=== PATIENT | male | born 1965 | race Caucasian/White ===

== ENCOUNTER → 2016-10-24 | Outpatient (CLI) | payer OTHER ==
[2016-10-24 10:11] LABS: Basophils % (A) 1 %; CH 29.6; CHCM 33.2; Eosinophils # (A) 0.1 k/uL (0-0.7); Eosinophils % (A) 3 %; HCT 47.6 % (39.0-53.0); HDW 2.57; HGB 16.1 gm/dL (13.0-17.5); Luc # (Auto) 0.09; Luc % (Auto) 2; Lymphocytes # (A) 1.2 k/uL (1.0-4.8); Lymphocytes % (A) 26 %; MCH 30.2 pg (25.0-35.0); MCHC 33.7 g/dL (31.0-37.0); MCV 89.7 fL (80.0-100.0); Mean Platelet Volume 8.3; Monocytes # (A) 0.2 k/uL (0-1.0); Monocytes % (A) 5 %; Neutrophils # (A) 2.8 k/uL (1.3-7.7); Neutrophils % (A) 63 %; RBC 5.31 m/uL (4.30-5.90); RDW 13.4 % (11.5-15.5); WBC 4.5 k/uL (3.8-10.6); WBC (Perox) 4.33
[2016-10-24 10:45] LABS: ALT 35 U/L (21-72); AST 33 U/L (17-59); Alkaline Phosphatase 71 U/L (38-126); Anion Gap 11 mmol/L; Blood Urea Nitrogen 20 mg/dL (9-20); C Reactive Protein <5.0 mg/L (<10.0); Calcium 9.6 mg/dL (8.4-10.2); Carbon Dioxide 30 mmol/L (22-30); Chloride 103 mmol/L (98-107); Cholesterol 149 mg/dL (<200); Glucose 114 mg/dL (74-99); HDL Cholesterol 82 mg/dL (40-60); Non-African American GFR(MDRD) >60 (>60 ml/min/1.73 sqM); Potassium 4.7 mmol/L (3.5-5.1); Sodium 144 mmol/L (137-145); Total Bilirubin 0.6 mg/dL (0.2-1.3); Total Protein 7.4 g/dL (6.3-8.2); Triglycerides 79 mg/dL (<150); Uric Acid 4.9 mg/dL (3.5-8.5)
[2016-10-24 10:48] LABS: Rheumatoid Factor, Qnt 18 IU/mL (<12)
[2016-10-24 11:18] LABS: Erythrocyte Sedimentation Rate 2 mm/hr (0-15)
[2016-10-26 09:24] LABS: HLA B27 POSITIVE; HLA B27 Comment SEEBELOW
== END | disposition home or self-care (01) ==
LOC: LABMAIN 08:29
PROVIDERS: ATTEND Family Medicine
DX: Z00.01 Encounter for general adult medical examination with abnormal findings (principal); E10.9 Type 1 diabetes mellitus without complications; Z12.5 Encounter for screening for malignant neoplasm of prostate
CPT/HCPCS: 86812; 36415; 80061; 80053; 85652; 84443; 84550; 85025; 86140; 86431; 86038; G0103

== ENCOUNTER → 2018-07-30 | Outpatient (CLI) | payer OTHER ==
[2018-07-30 17:32] LABS: Vitamin D 25 Hydroxy 38.2 ng/mL (30.0-100.0)
[2018-07-30 17:42] LABS: Albumin 4.6 g/dL (3.80-4.90); Albumin/Globulin Ratio 1.92 (1.60-3.17); Anion Gap 6.5 mmol/L (4.00-12.00); Calcium 9.6 mg/dL (8.7-10.3); Carbon Dioxide 32.5 mmol/L (21.6-31.8); Globulin 2.4 g/dL (1.6-3.3); LDL Cholesterol,Calculated 53.2 mg/dL (0.0-131.0); Magnesium 1.8 mg/dL (1.5-2.4); Potassium 4.4 mmol/L (3.5-5.5); Total Bilirubin 0.7 mg/dL (0.3-1.2); VLDL Calculation 14.8 mg/dL (5.00-40.00)
== END ==
LOC: LABWHC1 09:32
PROVIDERS: ATTEND Internal Medicine Endocrinology, Diabetes & Metabolism
DX: E55.9 Vitamin D deficiency, unspecified (principal); E10.65 Type 1 diabetes mellitus with hyperglycemia
CPT/HCPCS: 36415; 80053; 80061; 82043; 82306; 82570; 82607; 83735; 84439; 84443

== ENCOUNTER → 2020-02-13 | Outpatient (CLI) | payer MEDICAID ==
[2020-02-13 10:56] LABS: Basophils % (A) 1 %; Eosinophils # (A) 0.2 k/uL (0-0.7); Eosinophils % (A) 4 %; HGB 15.5 gm/dL (13.0-17.5); Lymphocytes # (A) 1.2 k/uL (1.0-4.8); Lymphocytes % (A) 26 %; MCH 28.5 pg (25.0-35.0); MCHC 32.3 g/dL (31.0-37.0); MCV 88.3 fL (80.0-100.0); Monocytes # (A) 0.3 k/uL (0-1.0); Monocytes % (A) 6 %; Neutrophils # (A) 2.9 k/uL (1.3-7.7); Neutrophils % (A) 62 %; Platelet Count 215 k/uL (150-450); RBC 5.44 m/uL (4.30-5.90); RDW 13.4 % (11.5-15.5); WBC 4.7 k/uL (3.8-10.6)
[2020-02-13 19:11] LABS: African American GFR (CKD) 97.1 (60.0-200.0); Albumin 4.5 g/dL (3.80-4.90); Albumin/Globulin Ratio 2.05 (1.60-3.17); Anion Gap 5.9 mmol/L (4.00-12.00); Calcium 9.2 mg/dL (8.7-10.3); Carbon Dioxide 30.1 mmol/L (21.6-31.8); Chol/HDL Ratio 1.62; Globulin 2.2 g/dL (1.6-3.3); LDL Cholesterol,Calculated 48.6 mg/dL (0.0-131.0); Non-African American GFR(CKD) 83.8 (60.0-200.0); PSA Annual Screen 1.1 ng/mL (0.0-4.0); Potassium 4.5 mmol/L (3.5-5.5); Total Bilirubin 0.6 mg/dL (0.3-1.2); Total Protein 6.7 g/dL (6.2-8.2); VLDL Calculation 14.4 mg/dL (5.00-40.00)
[2020-02-13 19:34] LABS: Urine Creatinine 175.9 mg/dL
[2020-02-13 20:10] LABS: Hemoglobin A1C 7.4 % (4.0-6.0)
== END | disposition home or self-care (01) ==
LOC: LABWHC1 09:36
PROVIDERS: ATTEND Internal Medicine
DX: Z00.01 Encounter for general adult medical examination with abnormal findings (principal); E10.65 Type 1 diabetes mellitus with hyperglycemia
CPT/HCPCS: 80061; 80053; 85025; 82043; 82570; 83036; 36415; G0103

== ENCOUNTER → 2020-06-18 | Outpatient (CLI) | payer MEDICAID ==
[2020-06-19 02:38] LABS: Cyclic Citrull Pep IgG Unit 0.6 U/mL; Cyclic Citrullinated Pep IgG NEGATIVE (NEGATIVE)
== END | disposition home or self-care (01) ==
LOC: LABWHC1 15:26
PROVIDERS: ATTEND Family Medicine
DX: M79.18 Myalgia, other site (principal); M54.5 Low back pain; R76.0 Raised antibody titer; M25.50 Pain in unspecified joint
CPT/HCPCS: 36415; 82306; 86038; 86200; 86431

== ENCOUNTER → 2020-08-20 | Outpatient (CLI) | payer MEDICAID ==
[2020-08-20 16:40] LABS: Appearance,Urine Clear (Clear); Bilirubin,Urine Negative (Negative); Blood,Urine Negative (Negative); Color,Urine Light Yellow; Glucose,Urine (UA) 4+ (Negative); Ketones,Urine Negative (Negative); Leukocyte Esterase,Urine Negative (Negative); Nitrite,Urine Negative (Negative); PH, Urine 6.5 (5.0-8.0); Protein,Urine Negative (Negative); Specific Gravity,Urine 1.014 (1.001-1.035); Urobilinogen,Urine <2.0 mg/dL (<2.0)
[2020-08-21 01:15] LABS: Basophils # (A) 0.04 X 10*3/uL (0.00-0.10); Eosinophils # (A) 0.11 X 10*3/uL (0.04-0.35); Eosinophils % (A) 2.8 %; HCT 42.3 % (39.6-50.0); HGB 13.9 g/dL (13.0-17.0); Lymphocytes # (A) 1.07 X 10*3/uL (0.90-5.00); Lymphocytes % (A) 27.4 %; MCH 29.4 pg (27.0-32.0); MCHC 32.9 g/dL (32.0-37.0); MCV 89.6 fL (80.0-97.0); Mean Platelet Volume 11.1 fL (9.5-12.2); Monocytes # (A) 0.35 X 10*3/uL (0.20-1.00); Neutrophils # (A) 2.33 X 10*3/uL (1.80-7.70); Neutrophils % (A) 59.5 %; Platelet Count 221 X 10*3/uL (140-440); RBC 4.72 X 10*6/uL (4.40-5.60); RDW 12.5 % (11.5-14.5); WBC 3.91 X 10*3/uL (4.50-10.00)
[2020-08-21 01:58] LABS: Erythrocyte Sedimentation Rate 3 mm/Hr (0-20)
[2020-08-21 03:22] LABS: Anti-Smith Ab Interp NEGATIVE (NEGATIVE); Cardiolipin Ab IgG Interp NEGATIVE (NEGATIVE); Cardiolipin Ab IgM Interp NEGATIVE (NEGATIVE); Cardiolipin IgA Antibody <0.5 U/mL; Cardiolipin IgM Antibody 0.8 U/mL; Cyclic Citrull Pep IgG Unit 0.5 U/mL; Cyclic Citrullinated Pep IgG NEGATIVE (NEGATIVE); DNA Double-Stranded NEGATIVE (NEGATIVE); Scleroderma SC-70 Ab <0.2 AI
[2020-08-21 04:23] LABS: Protein, Total 6.5 g/dL (6.2-8.2)
[2020-08-21 04:58] LABS: ALT 22 U/L (10-49); AST 28 U/L (14-35); African American GFR (CKD) 85.9 (60.0-200.0); Alkaline Phosphatase 68 U/L (41-126); BUN/Creat Ratio 20.91 Ratio (12.00-20.00); C Reactive Protein <0.4 mg/dL (0.0-0.8); Calcium 8.9 mg/dL (8.7-10.3); Carbon Dioxide 26.6 mmol/L (21.6-31.8); Chloride 102 mmol/L (96-109); Creatine Kinase 212 U/L (35-257); Glucose 271 mg/dL (70-110); Non-African American GFR(CKD) 74.1 (60.0-200.0); Potassium 4.4 mmol/L (3.5-5.5); Rheumatoid Factor, Qnt 24 IU/mL (0-15); Sodium 138 mmol/L (135-145); Total Bilirubin 0.5 mg/dL (0.3-1.2); Total Protein 6.6 g/dL (6.2-8.2); Uric Acid 5.6 mg/dL (3.7-8.7)
[2020-08-21 05:37] LABS: Hepatitis B Surface Antigen Non-Reactive (Non-Reactive); Hepatitis C IgG Antibody Non-Reactive (Non-Reactive)
[2020-08-21 09:44] LABS: Angiotensin-1 Converting Enz. 74 U/L (8-52)
[2020-08-21 09:46] LABS: Aldolase 5.6 U/L (1.2-7.6)
[2020-08-21 11:14] LABS: APTT 37 Sec(s) (<43); Dilute Russell Viper Venom 32 Sec(s) (<44)
[2020-08-21 12:06] LABS: Complement C3 78.1 mg/dL (80.0-207.0)
[2020-08-21 13:03] LABS: HLA B27 POSITIVE
[2020-08-21 15:22] LABS: C-ANCA <1:20 Titer (<1:20)
[2020-08-21 17:57] LABS: Vitamin D, 1, 25-Dihydroxy 68 pg/mL (20 - 79)
[2020-08-22 14:03] LABS: Albumin 4.34 g/dL (3.80-4.90)
[2020-08-23 14:11] LABS: Histone Antibody 0.4 UNITS (<1.0)
== END | disposition home or self-care (01) ==
LOC: LABWHC1 15:32
PROVIDERS: ATTEND Internal Medicine Rheumatology
DX: R76.0 Raised antibody titer (principal)
CPT/HCPCS: 36415; 80053; 81003; 82085; 82164; 82306; 82550; 82652; 83516; 83520; 83883; 84165; 84439; 84443; 84550; 85025; 85613; 85652; 85730; 86038; 86140; 86147; 86160; 86162; 86200; 86225; 86235; 86255; 86334; 86431; 86803; 86812; 87340

== ENCOUNTER → 2020-08-30 | Outpatient (CLI) | payer MEDICAID ==
--- NOTE | 2020-08-30 16:32 | XR ---
Cervical spine HISTORY: M 54.5, M 79.642, M 79.641, M 54.2 5 views of the cervical spine Loss of disc height is present at C6-7 greater than C3-4, C4-5. Some foraminal encroachment is presen t on the right at C3-4. Cervical vertebral bodies show preserved height, alignment, and bone minerali zation. Prevertebral soft tissues are normal. Lung apices are within normal limits. IMPRESSION: Suspect some underlying degenerative disc disease. Consider cervical MRI.
--- NOTE | 2020-08-30 16:33 | XR ---
AP pelvis HISTORY:M 54.5, M 79.642, M 79.641, M 54.2 Single frontal view of the pelvis Degenerative disc changes noted in the lumbar spine. Bone mineralization, joint spaces and alignment are maintained. Sacroiliac joints are intact without erosion or ankylosis, no hypertrophic change. IMPRESSION: Degenerative disc disease lumbar spine
--- NOTE | 2020-08-30 16:36 | XR ---
Lumbosacral spine HISTORY: 54.5, M 79.642, M 79.641, M 54.2 5 views of lumbosacral spine Correlated to prior exam 08/11/2013 There is no evident spondylolysis or spondylolisthesis. Loss of disc height is present at interverteb ral levels L4-5, L3-4 with associated vacuum phenomenon, loss of disc height also present L5-S1. Scle rosis of the posterior elements is consistent with facet arthropathy. Lumbar vertebral bodies show pr eserved height and bone mineralization. impression: Degenerative disc disease and facet arthropathy has progressed since prior exam
--- NOTE | 2020-08-30 16:38 | XR ---
Bilateral hands and bilateral wrists 4 views of each wrist, 3 views of each hand submitted Bone mineralization, joint spaces and alignment are maintained. No evident erosions. impression: No significant arthropathy evident
== END | disposition home or self-care (01) ==
LOC: RADXRMAIN 14:36
PROVIDERS: ATTEND Internal Medicine Rheumatology
DX: M51.36 Other intervertebral disc degeneration, lumbar region (principal); M47.816 Spondylosis without myelopathy or radiculopathy, lumbar region; M79.642 Pain in left hand; M79.641 Pain in right hand; M54.2 Cervicalgia
CPT/HCPCS: 72050; 72110; 72170

== ENCOUNTER → 2022-03-28 | Outpatient (CLI) | payer MEDICAID ==
[2022-03-28 10:11] LABS: Basophils % (A) 1 %; Eosinophils # (A) 0.2 k/uL (0-0.7); Eosinophils % (A) 5 %; HCT 45.3 % (39.0-53.0); HGB 15.4 gm/dL (13.0-17.5); Lymphocytes % (A) 24 %; MCH 30.3 pg (25.0-35.0); MCV 89.1 fL (80.0-100.0); Mean Platelet Volume 8.4; Monocytes # (A) 0.3 k/uL (0-1.0); Monocytes % (A) 6 %; Neutrophils # (A) 2.6 k/uL (1.3-7.7); Neutrophils % (A) 61 %; Platelet Count 195 k/uL (150-450); RBC 5.09 m/uL (4.30-5.90); RDW 12.9 % (11.5-15.5); WBC 4.2 k/uL (3.8-10.6)
[2022-03-28 10:36] LABS: ALT 26 U/L (4-49); AST 39 U/L (17-59); African American GFR (CKD) >90 (>60 ml/min/1.73 sqM); Albumin 4.5 g/dL (3.5-5.0); Albumin/Globulin Ratio 1.7; Alkaline Phosphatase 72 U/L (38-126); Anion Gap 9 mmol/L; Blood Urea Nitrogen 24 mg/dL (9-20); Carbon Dioxide 29 mmol/L (22-30); Chloride 99 mmol/L (98-107); Globulin 2.6 g/dL; Glucose 187 mg/dL (74-99); Non-African American GFR(CKD) 90 (>60 ml/min/1.73 sqM); Potassium 4.9 mmol/L (3.5-5.1); Sodium 137 mmol/L (137-145); Total Bilirubin 0.5 mg/dL (0.2-1.3); Total Protein 7.1 g/dL (6.3-8.2)
[2022-03-28 23:20] LABS: Chol/HDL Ratio 1.73 Ratio; LDL Cholesterol,Calculated 52.7 mg/dL (0.0-131.0); VLDL Calculation 12.86 mg/dL (5.00-40.00)
[2022-03-28 23:38] LABS: Microalbumin Creatinine Ratio <30 mg/g Creat (0-30)
== END | disposition home or self-care (01) ==
LOC: LABWHC1 09:40
PROVIDERS: ATTEND Family Medicine
DX: Z00.01 Encounter for general adult medical examination with abnormal findings (principal); E10.9 Type 1 diabetes mellitus without complications; M54.59 Other low back pain; Z12.11 Encounter for screening for malignant neoplasm of colon; Z12.5 Encounter for screening for malignant neoplasm of prostate
CPT/HCPCS: 36415; 80053; 80061; 82043; 82570; 83036; 84153; 85025

== ENCOUNTER 2022-06-17 08:48 | Day surgery (SDC) | payer MEDICAID ==
[2022-06-12 10:30] VITALS: BMI 24.6
[~2022-06-17 08:48] MED LIST: LACTATED RINGERS 1,000 ML IV SCH; LIDOCAINE 1% (10MG/ML) FOR IV START INTRADERMA PRN
[2022-06-17 09:08] VITALS: TEMP 97
[2022-06-17 09:14] LABS: Glucose,Whole Blood 122 mg/dL (70-110)
[2022-06-17] MEDS ORDERED: PROPOFOL 10 MG/ML 20 ML VIAL IV ONE (09:17)
--- NOTE | 2022-06-17 09:32 | P.PCN ---
Date of Procedure: 06/17/22 Procedure(s) Performed: BRIEF HISTORY: Patient is a 57-year-old pleasant white male scheduled for an elective colonoscopy as a part of screening for colorectal neoplasia. PROCEDURE PERFORMED: Colonoscopy. PREOPERATIVE DIAGNOSIS: Screening for colon cancer. IV sedation per Anesthesia. PROCEDURE: After informed consent was obtained, the patient, was brought into the endoscopy unit. IV sedation was administered by Anesthesia under continuous monitoring. Digital rectal examination was normal. Initially the Olympus CF-160 flexible video colonoscope was then inserted in the rectum, gradually advanced into the cecum without any difficulty. Careful examination was performed as the scope was gradually being withdrawn. Ileocecal valve and the appendiceal orifice were visualized and appeared normal. Prep was excellent. Mucosa of the cecum, ascending colon, transverse colon, descending colon, sigmoid colon, and rectum appeared normal. Retroflexion was performed in the rectum and no lesions were seen. The patient tolerated the procedure well. IMPRESSION: Normal-appearing colon from rectum to cecum with no evidence of colorectal neoplasia . RECOMMENDATIONS: Findings of this examination were discussed with the patient as well as his family. He was advised to have a repeat screening colonoscopy in 10 years..
[2022-06-17 09:45] VITALS: PULSE 60; RESP 16
[2022-06-17 09:59] VITALS: BP 137/85
== END 2022-06-17 10:12 | disposition home or self-care (01) ==
LOC: ORWHC2ENDO 08:48
PROVIDERS: ATTEND Internal Medicine Gastroenterology
DX: Z12.11 Encounter for screening for malignant neoplasm of colon (principal); E11.9 Type 2 diabetes mellitus without complications; Z98.890 Other specified postprocedural states; Z79.899 Other long term (current) drug therapy
CPT/HCPCS: 45378; J2704

== ENCOUNTER → 2022-08-26 | Outpatient (CLI) | payer MEDICAID ==
[2022-08-26 15:53] LABS: ALT 24 U/L (10-49); AST 28 U/L (14-35); African American GFR (CKD) 108.8 (60.0-200.0); Albumin 4.8 g/dL (3.8-4.9); Albumin/Globulin Ratio 1.84 (1.60-3.17); Alkaline Phosphatase 77 U/L (41-126); BUN/Creat Ratio 17.65 Ratio (12.00-20.00); Blood Urea Nitrogen 15.6 mg/dL (9.0-27.0); Calcium 9.3 mg/dL (8.7-10.3); Carbon Dioxide 29.6 mmol/L (20.0-27.5); Chloride 103 mmol/L (96-109); Chol/HDL Ratio 1.95 Ratio; Globulin 2.6 g/dL (1.6-3.3); Glucose 106 mg/dL (70-110); LDL Cholesterol,Calculated 80.6 mg/dL (0.0-131.0); Non-African American GFR(CKD) 93.9 (60.0-200.0); Potassium 4.5 mmol/L (3.5-5.5); Sodium 144 mmol/L (135-145); Total Protein 7.3 g/dL (6.2-8.2); VLDL Calculation 17.44 mg/dL (5.00-40.00)
[2022-08-26 20:53] LABS: Microalbumin Creatinine Ratio <30 mg/g Creat (0-30); Urine Creatinine 74.6 mg/dL (39.0-259.0)
== END | disposition home or self-care (01) ==
LOC: LABWHC1 08:58
PROVIDERS: ATTEND Internal Medicine
DX: E10.65 Type 1 diabetes mellitus with hyperglycemia (principal)
CPT/HCPCS: 36415; 80053; 80061; 82043; 82570; 83036

== ENCOUNTER → 2023-08-06 | Outpatient (CLI) | payer MEDICAID ==
[2023-08-06 18:44] LABS: ALT 22 U/L (10-49); AST 24 U/L (14-35); Albumin 4.5 g/dL (3.8-4.9); Albumin/Globulin Ratio 2.05 Ratio (1.60-3.17); Alkaline Phosphatase 64 U/L (41-126); BUN/Creat Ratio 19.56 Ratio (12.00-20.00); Blood Urea Nitrogen 17.6 mg/dL (9.0-27.0); Calcium 9.4 mg/dL (8.7-10.3); Carbon Dioxide 30.3 mmol/L (21.6-31.8); Chloride 102 mmol/L (96-109); Chol/HDL Ratio 1.89 Ratio; Globulin 2.2 g/dL (1.6-3.3); Glucose 126 mg/dL (70-110); LDL Cholesterol,Calculated 61.2 mg/dL (0.0-131.0); Potassium 4.3 mmol/L (3.5-5.5); Sodium 141 mmol/L (135-145); Total Bilirubin 0.5 mg/dL (0.3-1.2); Total Protein 6.7 g/dL (6.2-8.2); VLDL Calculation 19.72 mg/dL (5.00-40.00)
[2023-08-06 19:03] LABS: Microalbumin Creatinine Ratio <18 mg/g Cr (0-30); Urine Creatinine 67.8 mg/dL (39.0-259.0)
== END | disposition home or self-care (01) ==
LOC: LABWHC1 08:53
PROVIDERS: ATTEND Internal Medicine
DX: E10.65 Type 1 diabetes mellitus with hyperglycemia (principal)
CPT/HCPCS: 36415; 80053; 80061; 82043; 82570; 83036

== ENCOUNTER → 2024-01-06 | Outpatient (CLI) | payer MEDICAID | END | disposition home or self-care (01) | LOC: LABPRL 10:30 | PROVIDERS: ATTEND Internal Medicine | DX: E10.65 Type 1 diabetes mellitus with hyperglycemia | CPT/HCPCS: 83036 ==

== ENCOUNTER → 2024-03-28 | Outpatient (CLI) | payer MEDICAID ==
--- NOTE | 2024-03-28 12:57 | US ---
EXAMINATION TYPE: US carotid duplex BILAT DATE OF EXAM: 03/28/2024 COMPARISON: NONE CLINICAL INDICATION: Male, 59 years old with history of I85.23 Bilateral carotid artery stenosis; Hx DM TECHNIQUE: Grayscale, color Doppler and spectral Doppler evaluation of the bilateral carotid systems and vertebral arteries. Indirect Doppler criteria was utilized. FINDINGS: EXAM MEASUREMENTS: RIGHT: Peak Systolic Velocity (PSV) cm/sec ----- Right CCA: 92 ----- Right ICA: 156 ----- Right ECA: 160 ICA/CCA ratio: 1.7 RIGHT: End Diastole cm/sec ----- Right CCA: 25 ----- Right ICA: 22 ----- Right ECA: 29 LEFT: Peak Systolic Velocity (PSV) cm/sec ----- Left CCA: 94 ----- Left ICA: 91 ----- Left ECA: 111 ICA/CCA ratio: 0.96 LEFT: End Diastole cm/sec ----- Left CCA: 26 ----- Left ICA: 28 ----- Left ECA: 16 VERTEBRALS (direction of flow): Right Vertebral: Antegrade Left Vertebral: Antegrade Rhythm: Normal TRANSMISSION SUPERINTENDENT NOTES: No plaque or intimal thickening seen. Elevated velocities seen within right ICA an d ECA Incidental - Multiple right thyroid cystic areas, Left thyroid nodule = 4.0 x 2.3 x 1.8 cm IMPRESSION: Right: Less than 50% stenosis of the origin of the right internal carotid artery. Left: No hemodynamically significant stenosis within the visualized left carotid arterial system. Multinodular thyroid gland with a 4.0 cm left thyroid lobe nodule suggested. Further evaluation with thyroid ultrasound is recommended. Criteria for Assigning % of Stenosis / Diameter reduction (Estimation based on the indirect measurements of the internal carotid artery velocities (ICA PSV). 1. Normal (no stenosis)=ICA PSV < 125 cm/s: ratio < 2.0: ICA EDV<40 cm/s. 2. Less than 50% stenosis=ICA PSV < 125 cm/s: ratio < 2.0: ICA EDV<40 cm/s. 3. 50 to 69% stenosis=ICA PSV of 125 to 230 cm/s: ration 2.0 ? 4.0: ICA EDV 40-100 cm/s. 4. Greater than 70% stenosis to near occlusion= ICA PSV > 230 cm/s: ratio > 4.0: ICA EDV > 100 cm/s. 5. Near occlusion= ICA PSV velocities may be low or undetectable: variable ratio and ICA EDV. 6. Total occlusion=unable to detect flow. [facility], , 03/28/2024 12:55 PM
== END | disposition home or self-care (01) ==
LOC: RADUSWWP 12:26
PROVIDERS: ATTEND Internal Medicine
CPT/HCPCS: 93880

== ENCOUNTER → 2024-04-11 | Outpatient (CLI) | payer MEDICAID ==
--- NOTE | 2024-04-11 17:56 | US ---
EXAMINATION TYPE: US thyroid st tissue head/neck DATE OF EXAM: 04/11/2024 COMPARISON: 03/28/24 CLINICAL INDICATION: Male, 59 years old with history of E04.1 THYROID NODULE; Pt had a carotid US don e and they found a thyroid nodule TECHNIQUE: Grayscale and color Doppler imaging of the thyroid gland. FINDINGS: GLAND SIZE: Right Lobe: 5.1 x 1.6 x 1.2 cm Overall Parenchyma: homogeneous Left Lobe: 6.5 x 2.4 x 2.4 cm Overall Parenchyma: homogeneous Isthmus Thickness: 0.30 cm NODULES RIGHT: # of nodules measured on right: 0 Multiple colloid cysts seen under 1cm LEFT: # of nodules measured on left: 1 1. 4.1 X 2.3 x 2.4 cm, lower mid, TIRADS Score: 3 TIRADS Category 3: Composition: Mixed cystic and solid (1 point). Echogenicity: Hypoechoic (2 points). Shape: Wider than tall (0 points). Margin: Smooth (0 points). Echogenic foci: None or large comet-tail artifacts (0 points) Recommendation: If >2.5cm: FNA; If >1.5cm: Follow up at 1,3,5 years ISTHMUS: # of nodules measured in the isthmus: 0 Bilateral neck scanned, no evidence of lymphadenopathy. IMPRESSION: Left thyroid nodule meets criteria for fine-needle aspiration of nodularity performed. [facility], , 04/11/2024 5:53 PM
== END | disposition home or self-care (01) ==
LOC: RADUSWWP 15:37
PROVIDERS: ATTEND Internal Medicine
DX: E04.1 Nontoxic single thyroid nodule (principal)
CPT/HCPCS: 76536

== ENCOUNTER 2024-05-15 07:55 | Day surgery (SDC) | payer MEDICAID ==
[2024-05-15 08:27] VITALS: TEMP 97.9
[2024-05-15 09:16] VITALS: BP 148/79; PULSE 69; RESP 16
--- NOTE | 2024-05-15 09:49 | US ---
EXAMINATION TYPE: US FNA thyroid first lesion DATE OF EXAM: 05/15/2024 9:08 AM COMPARISON: 04/11/2024 CLINICAL INDICATION:Male, 59 years old with history of E04.1 NONTOXIC SINGLE THYROID NODULE; , ATTENDING: Dr. Mt Navas PROCEDURE: Informed consent was obtained. The risks and benefits of the procedure were discussed with the patien t. The site was marked. Timeout procedure was performed Ultrasound imaging demonstrates left thyroid nodule The patient was prepped, draped in the usual sterile fashion, and locally anesthetized with 1% lidoca ine. Five fine needle aspiration were then performed with a 25 gauge needle. Samples were sent to [facility] pathology department for further analysis. Patient tolerated the procedure without incident and wa s sent home in stable condition. IMPRESSION: Successful ultrasound guided fine needle aspiration [facility], , 05/15/2024 9:46 AM
== END 2024-05-15 09:19 | disposition home or self-care (01) ==
LOC: RADPROMAIN 07:55
PROVIDERS: ATTEND Internal Medicine
DX: E04.1 Nontoxic single thyroid nodule (principal)
CPT/HCPCS: 10005; 88173; 88305

== ENCOUNTER → 2024-08-21 | Outpatient (CLI) | payer MEDICAID ==
--- NOTE | 2024-08-21 14:15 | US ---
EXAMINATION TYPE: US arterial LE single level DATE OF EXAM: 08/21/2024 1:57 PM COMPARISONS: None. CLINICAL INDICATION: Male, 59 years old with history of E10.40 TYPE 1 DIABETES MELLITUS WITH DIABETIC NEUR; cold feet TECHNIQUE: Systolic pressures were taken of the upper and lower extremity arteries with ankle-brachia l indices and toe brachial indices calculated bilaterally. History of: Smoker: n Hypertension: n Diabetic: y Hyperlipidemia: y TIA/CVA: n Previous Vascular Surgery: n CAD: n VA: n Vascular Ulcers: n Claudication: n Gangrene: n FINDINGS: Doppler Waveforms: Right: Multiphasic Left: Multiphasic Brachial Artery systolic pressure: Right: 136 Left: 134 Posterior Tibial artery systolic pressure: Right: 166 Left: 165 Dorsalis Pedis artery systolic pressure: Right: 168 Left: 163 Toe artery systolic pressure: Right: 105 Left: 109 Ankle-Brachial Indices: Right: 1.2 Left: 1.2 Toe Brachial Indices: Right: 0.7 Left: 0.8 (Normal > 0.6; Mild 0.35 - 0.59, Moderate 0.12 - 0.34, Severe <0.12) IMPRESSION: JOSE: Right: Normal 0.9 - 1.4, Recommendation: None Left: Normal 0.9 - 1.4, Recommendation: None [facility], , 08/21/2024 2:12 PM
== END | disposition home or self-care (01) ==
LOC: RADUSWWP 13:33
PROVIDERS: ATTEND Internal Medicine
DX: E10.40 Type 1 diabetes mellitus with diabetic neuropathy, unspecified (principal)
CPT/HCPCS: 93922

== ENCOUNTER → 2024-08-28 | Outpatient (CLI) | payer MEDICAID ==
[2024-08-28 11:13] VITALS: BP 141/83; PULSE 96; RESP 16
--- NOTE | 2024-08-28 15:18 | P.PAINPG ---
PQRS Measure Charge Sheet Comment: HISTORY OF PRESENT ILLNESS: A 59 yr old male w at side as a referral from Dr Siddiqi presents today w severe and chronic LBP > 1 yr secondary to radiculopathy, spondylosis and facet arthropathy without myelopathy for evaluation. Pt states pain level is provoked at 8 /10 in intensity, constant, localized in the lumbar spine, predominantly axial, sharp in character w occasional shooting pain towards the LEs. Pain is provoked by over activity, bending. Pain is alleviated by PT x 6 wks which ended in Jul 2024, physician guided home exercises 4-5 times weekly since Jul 2024, heat, medications, repositioning and rest . Oswestry axial pain score at 26. PMH: OA, HTN, NIDDM II, Hyperlipidemia PSH: Colonoscopy (2022), Varicoselectomy (L 4th digit) SH: Negative x3 FH: Non contributory All: See list Meds: See list incl Mobic, Novolog REVIEW OF ORGAN SYSTEMS: CONSTITUTIONAL: No fevers or chills. No recent weight loss. NEUROLOGICAL: + numbness and tingling along the distal extremities. No seizure disorders or headaches. MUSCULOSKELETAL: + pain PSYCHIATRIC: Denies current depression or suicidal thoughts. Physical Examinations : Constitutional : Cooperative , not in acute distress . Neurologic : Cranial nerve II to XII intact. No focal neurological deficits. Psychiatric : alert & oriented x 3. Matching mood & appropriate affect. Judgment & insight intact. Musculoskeletal : Cervical Spine Motor strength in the deltoid and biceps: Normal right side. Normal Left side Motor strength biceps and the wrist extensors: Normal right side . Normal left side Motor strength in the triceps muscle: Normal right side. Normal left side Deep tendon reflexes: Normal at the biceps. Normal at Brachioradialis. Normal at triceps Vertebral body tenderness to deep palpation over Cervical facet loading test: positive bilaterally Spurling test: positive bilaterally Neck distraction test: positive bilaterally Tammy sign: positive bilaterally Lumbar spine Motor strength lower extremities ,thigh and legs 5/5 Right side , 5/5 Left side Deep tendon reflexes : Normal Knee Jerk. Normal Ankle Jerk Vertebral body tenderness over L5 Martinez Test positive R L4-L5/ L5-S1 Lumbar facet Loading Test: positive Right / positive Left Range of motion of the lumbar spine Flexion 30 degrees, extension 10 degrees Straight Leg Raise test: Left/ Right positive at degrees Deanna test: positive right / positive left. Severe tenderness over the Sacroiliac joint on the Right / Left sides Gaenslen test: positive bilaterally Seated flexion test: positive bilaterally. Sacral spine : Severe tenderness over the Sacroiliac joint: right side / left side Range of motion: Flexion of the lumbar spine <60 degrees Range of motion: Extension of the lumbar spine <20 degrees Gaenslen's Test positive Deanna test: positive right side / left side Thigh Thrust Test Sacral Thrust Test Imaging: MRI non contrast lumbar spine from 07/21/24 reviewed Assessment/ Plan : L3-L4/ L4-L5 radiculopathy Recommendation of R TFESI L4-L5/ L5-S1 #1. Risks, benefits of procedure discussed and patient verbalized understanding. Admits to anti- coagulant use or medical history of diabetes. Protocol for discontinuation/ continuation of medications patricia procedure discussed. All questions answered. I have spent greater than 30 minutes on patient care today. Dr Delgado was available by phone for the evaluation of this patient. The time was used to review the medical records including relevant urine studies and Prescription history (MAPs), review of the available imaging, evaluation and examination of the patient, coordination of care with the medical staff and if applicable referring physicians, as well as creation of the medical record Home Medications: Ambulatory Orders Ascorbic Acid [Vitamin C] 1,000 mg PO DAILY 06/12/22 B12/Levomefolate Calcium/B-6 [Foltx Tablet] 5,000 mg PO DAILY 06/12/22 Calcium Carb/Mag Ox/Zinc Sulf [Ruf-Vcz-Gucd 334-134-5 mg Tab] 1 each PO DAILY 06/12/22 Ginkgo Biloba [place] Extract [Ginkgo] 120 mg PO DAILY 06/12/22 INSULIN LISPRO (For Pump) [humaLOG (For Pump)] units SQ-PUMP CONTINUOUS 06/12/22 Meloxicam [Mobic] 7.5 mg PO BID PRN 06/12/22 Vitamin E (Dl,Tocopheryl Acet) [Vitamin E (400 Iu = 180 mg)] 3,000 mg PO DAILY 06/12/22 lisinopriL [Zestril] 2.5 mg PO DAILY 05/03/24 HYDROcodone/APAP 7.5-325MG [[place] 7.5-325] 1 tab PO Q4H PRN 3 Days #18 tab 08/28/24 diazePAM [Valium] 5 mg PO DAILY 1 Days #2 tab 08/28/24 Controlled Substance Measures - Controlled Substance Measures Is patient prescribed a controlled substance at discharge?: Yes When asked, does pt state using other controlled substances?: No If prescribed controlled substance>3 days was MAPS reviewed?: Prescribed <3 Days
== END ==
LOC: PNWHC3 09:11
PROVIDERS: ATTEND Specialist
DX: M54.16 Radiculopathy, lumbar region (principal)
CPT/HCPCS: 99211

== ENCOUNTER → 2024-09-04 | Outpatient (CLI) | payer MEDICAID ==
[2024-09-04 10:47] LABS: Chol/HDL Ratio 1.81 Ratio; LDL Cholesterol,Calculated 43.5 mg/dL (0.0-131.0); T4, Free (Free Thyroxine) 1.35 ng/dL (0.80-1.80)
[2024-09-04 17:19] LABS: ALT 20 U/L (10-49); AST 23 U/L (14-35); Albumin 4.4 g/dL (3.8-4.9); Alkaline Phosphatase 57 U/L (41-126); BUN/Creat Ratio 21.78 Ratio (12.00-20.00); Blood Urea Nitrogen 19.6 mg/dL (9.0-27.0); Calcium 9.2 mg/dL (8.7-10.3); Carbon Dioxide 27.3 mmol/L (21.6-31.8); Chloride 102 mmol/L (96-109); Globulin 2.1 g/dL (1.6-3.3); Glucose 84 mg/dL (70-110); Potassium 4.2 mmol/L (3.5-5.5); Sodium 140 mmol/L (135-145); Total Bilirubin 0.6 mg/dL (0.3-1.2); Total Protein 6.5 g/dL (6.2-8.2)
[2024-09-04 18:30] LABS: Microalbumin Creatinine Ratio <12 mg/g Cr (0-30)
== END | disposition home or self-care (01) ==
LOC: LABWHC1 07:59
PROVIDERS: ATTEND Internal Medicine
DX: E04.1 Nontoxic single thyroid nodule (principal); E10.65 Type 1 diabetes mellitus with hyperglycemia
CPT/HCPCS: 36415; 80053; 80061; 82043; 82570; 83036; 84439; 84443

== ENCOUNTER → 2024-09-07 | Day surgery (SDC) | payer MEDICAID ==
[2024-09-06 11:19] VITALS: BMI 24.0
[~2024-09-07] MED LIST changes: +DEXAMETHASONE SOD PHOSPHATE 10 MG/ML 1 ML VIAL ONE; +IOPAMIDOL M300 15ML VIAL ONE; -LIDOCAINE 1% (10MG/ML) FOR IV START INTRADERMA PRN
[2024-09-07 06:35] VITALS: TEMP 98
[2024-09-07 06:40] LABS: Glucose,Whole Blood 90 mg/dL (70-110)
[2024-09-07 08:22] VITALS: BP 143/85; PULSE 58; RESP 14
--- NOTE | 2024-09-07 09:09 | FL ---
Fluoroscopy INDICATION: Pain FINDINGS: Fluoroscopy time: 67.2 seconds. Total dose area product (DAP) in uGy*m?, mGy*cm? (or similar): 0.12000 Images obtained: 4. Images document Grandy directed towards the lumbar spine level IMPRESSION: 1. Documentation of fluoroscopy. [facility], , 09/07/2024 9:07 AM
--- NOTE | 2024-09-07 09:16 | P.PCN ---
Description of Procedure: PREOPERATIVE DIAGNOSIS: 1-Lumbar radiculopathy . 2-lumbar degenerative disc disease. 3-lumbar spondylosis with lumbar facet arthropathy without myelopathy POSTOPERATIVE DIAGNOSIS: 1-lumbar radiculopathy. 2-lumbar degenerative disc disease. 3-lumbar spondylosis with facet arthropathy without myelopathy PROCEDURE 1. Transforaminal epidural steroid injection under fluoroscopic guidance at RIGHT L4-5,L5-S1 level. (Fluoroscopy images stored on file in the radiology Department ) 2. Lumbar epidurogram . ANESTHESIA: Local with 1% lidocaine 5 ml. subcutaneously. Continuous pulse ox, EKG, blood pressure and verbal communication was maintained with the patient. EBL: Minimal PROCEDURE INDICATION: The patient with low back pain and radiculopathy symptoms unresponsive to conservative treatment. The patient was seen and identified in the preoperative area. Risks, benefits, complications, and alternatives were discussed with the patient. The patient agreed to proceed with the procedure and signed the consent. IV was started, and vital signs were stable. PROCEDURE DESCRIPTION / TECHNIQUE: After getting consent, patient was taken to the OR and time out was completed. The patient was placed in the prone position on procedure table and a pillow was placed under the abdomen to reduce lumbar lordosis. The lumbosacral area was prepped and draped in the usual sterile fashion. Critical pause was taken. After injecting 5 mL of plain 1% lidocaine subcutaneously, under oblique view of the fluoroscope, a 22-gauge spinal needle was introduced under the tunnel view of the fluoroscope on the RIGHT L4-5 side and the needle was advanced so that the tip of the needle was at the posterior inferior quadrant of the intervertebr al foramen at the lateral view of the fluoroscope and in the lateral third of the facet column in the AP view of the fluoroscope. Negative CSF, negative blood, negative paresthesia. After needle position confirmation by AP and cross table lateral view, 3 mL of Isovue-M 200 contrast was injected under continuous fluoroscope. No contrast was noted in the intrathecal or intravascular space. The epidurogram was noted. Again after repeated negative aspiration 2.5 mL solution was injected which consists 1 mL of normal saline mixed with 1.5 mL of 15 mg dexamethasone. Needle was removed . Same procedure was repeated at the RIGHT L5-S1 side at same level , using contrast under continuous fluoroscopy and using same amount of dexamethasone. At the end of the procedure, skin was cleansed, and bandages were applied. DISPOSITION / PLANS: No complication. The patient tolerated the procedure well. The patient was placed in a supine position and transferred to the recovery area in a stable condition for observation. There was no evidence of lower extremity motor or sensory deficit after the procedure. Patient was discharged from the recovery room after meeting discharge criteria. Home discharge instructions were given to the patient by the staff. The patient was reexamined prior to discharge.
== END ==
LOC: ORPAIN 06:15
PROVIDERS: ATTEND Pain Medicine Interventional Pain Medicine
DX: M47.26 Other spondylosis with radiculopathy, lumbar region (principal); M51.16 Intervertebral disc disorders with radiculopathy, lumbar region
CPT/HCPCS: 64483; 64484; J1100; Q9967

== ENCOUNTER → 2024-10-02 | Outpatient (CLI) | payer MEDICAID ==
[2024-10-02 09:36] VITALS: BP 149/85; PULSE 69; RESP 17; TEMP 97.6
--- NOTE | 2024-10-02 16:36 | P.PAINPG ---
Objective - Vital Signs Vital signs: Intake & Output 10/01/24 10/02/24 10/02/24 18:59 06:59 18:59 Weight 70.307 kg PQRS Measure Charge Sheet Comment: HISTORY OF PRESENT ILLNESS: A 59 yr old male w at side presents today w severe and chronic LBP > 1 yr secondary to radiculopathy, spondylosis and facet arthropathy without myelopathy for evaluation s/p R TFESI L4-L5/ L5-S1 #1. Pt states he experienced 50 % pain relief x 2 wks s/p procedure. Pt states pain level is provoked at 8 /10 in intensity, constant, localized in the lumbar spine, predominantly axial, sharp in character w occasional shooting pain towards the LEs. Pain is provoked by over activity, bending. Pain is alleviated by PT x 6 wks which ended in Jul 2024, physician guided home exercises 4-5 times weekly since Jul 2024, heat, medications, repositioning and rest . Interventional procedures include R TFESI L4-L5/ L5-S1 x1 Medications include Mobic, Novolog REVIEW OF ORGAN SYSTEMS: CONSTITUTIONAL: No fevers or chills. No recent weight loss. NEUROLOGICAL: + numbness and tingling along the distal extremities. No seizure disorders or headaches. MUSCULOSKELETAL: + pain PSYCHIATRIC: Denies current depression or suicidal thoughts. Physical Examinations : Constitutional : Cooperative , not in acute distress . Neurologic : Cranial nerve II to XII intact. No focal neurological deficits. Psychiatric : alert & oriented x 3. Matching mood & appropriate affect. Judgment & insight intact. Musculoskeletal : Cervical Spine Motor strength in the deltoid and biceps: Normal right side. Normal Left side Motor strength biceps and the wrist extensors: Normal right side . Normal left side Motor strength in the triceps muscle: Normal right side. Normal left side Deep tendon reflexes: Normal at the biceps. Normal at Brachioradialis. Normal at triceps Vertebral body tenderness to deep palpation over Cervical facet loading test: positive bilaterally Spurling test: positive bilaterally Neck distraction test: positive bilaterally Tammy sign: positive bilaterally Lumbar spine Motor strength lower extremities ,thigh and legs 5/5 Right side , 5/5 Left side Deep tendon reflexes : Normal Knee Jerk. Normal Ankle Jerk Vertebral body tenderness over L5 Martinez Test positive R> L L4-L5/ L5-S1 Lumbar facet Loading Test: positive Right / positive Left Range of motion of the lumbar spine Flexion 30 degrees, extension 10 degrees Straight Leg Raise test: Left/ Right positive at degrees Deanna test: positive right / positive left. Severe tenderness over the Sacroiliac joint on the Right / Left sides Gaenslen test: positive bilaterally Seated flexion test: positive bilaterally. Sacral spine : Severe tenderness over the Sacroiliac joint: right side / left side Range of motion: Flexion of the lumbar spine <60 degrees Range of motion: Extension of the lumbar spine <20 degrees Gaenslen's Test positive Deanna test: positive right side / left side Thigh Thrust Test Sacral Thrust Test Imaging: MRI non contrast lumbar spine from 07/21/24 reviewed Assessment/ Plan : L3-L4/ L4-L5 radiculopathy Will manage residual pain and may RTC on an as needed basis. Will work on R TFESI L3-L4/ L4-L5 next time. All questions answered. I have spent greater than 30 minutes on patient care today. Dr Delgado was available by phone for the evaluation of this patient. The time was used to review the medical records including relevant urine studies and Prescription history (MAPs), review of the available imaging, evaluation and examination of the patient, coordination of care with the medical staff and if applicable referring physicians, as well as creation of the medical record - Pain Location Lower Back Non-Pharmacological Interventions: Heat PQRS Narrative: Hx Alcohol Use (MH) No Home Medications: Ambulatory Orders Ascorbic Acid [Vitamin C] 3,000 mg PO DAILY 06/12/22 Calcium Carb/Mag Ox/Zinc Sulf [Mgs-Epf-Izxc 334-134-5 mg Tab] 1 each PO DAILY 06/12/22 Ginkgo Biloba [place] Extract [Ginkgo] 120 mg PO DAILY 06/12/22 INSULIN LISPRO (For Pump) [humaLOG (For Pump)] 0 units SQ-PUMP CONTINUOUS 06/12/22 Meloxicam [Mobic] 7.5 mg PO BID PRN 06/12/22 Vitamin E (Dl,Tocopheryl Acet) [Vitamin E (400 Iu = 180 mg)] 400 units PO DAILY 06/12/22 lisinopriL [Zestril] 2.5 mg PO DAILY 05/03/24 HYDROcodone/APAP 7.5-325MG [[place] 7.5-325] 1 tab PO Q4H PRN 3 Days #18 tab 08/28/24 Cyanocobalamin (Vitamin B-12) [Vitamin B-12] 5,000 mcg PO DAILY 09/06/24 Rosuvastatin Calcium 5 mg PO DAILY 09/06/24 Controlled Substance Measures - Controlled Substance Measures Is patient prescribed a controlled substance at discharge?: No
== END ==
LOC: PNWHC3 09:16
PROVIDERS: ATTEND Specialist
DX: M47.26 Other spondylosis with radiculopathy, lumbar region (principal)
CPT/HCPCS: 99212